=== PATIENT | female | born 1960 | race Hispanic/Latino ===

== ENCOUNTER → 2019-02-03 | Outpatient (CLI) | payer MEDICARE ==
[~2019-02-03] MED LIST: DICL50TA7 PO; DOCU-116 PO; LEVO150 PO; LEVO150T11 PO; TYL3 PO
== END | disposition home or self-care (01) ==
LOC: RAH 09:49
PROVIDERS: ATTEND Family Medicine
DX: Z12.31 Encounter for screening mammogram for malignant neoplasm of breast (principal); N63.10 Unspecified lump in the right breast, unspecified quadrant
CPT/HCPCS: 77067

== ENCOUNTER → 2021-04-24 | Outpatient (CLI) | payer MEDICARE, OTHER | END | disposition home or self-care (01) | LOC: RAH 04-14 13:32 | PROVIDERS: ATTEND Family Medicine | DX: Z12.31 Encounter for screening mammogram for malignant neoplasm of breast (principal); N60.02 Solitary cyst of left breast; N63.20 Unspecified lump in the left breast, unspecified quadrant | CPT/HCPCS: 77066 ==

== ENCOUNTER → 2023-04-20 | Outpatient (CLI) | payer OTHER | END | disposition home or self-care (01) | LOC: RAH 14:10 | PROVIDERS: ATTEND Family Medicine | DX: Z12.31 Encounter for screening mammogram for malignant neoplasm of breast (principal) | CPT/HCPCS: 77067 ==

== ENCOUNTER 2023-08-01 11:43 | Inpatient (IN) | payer OTHER ==
[~2023-08-01] VITALS: Ht 162.6 cm; Wt 109.8 kg
[2023-08-01] MEDS: ASPIRIN 325MG TAB PO ONE (12:18)
[2023-08-01] MEDS: FAMOTIDINE 20MG VIAL IV ONE (12:18)
[2023-08-01] MEDS: NITROGLYCERIN 0.4 MG SL TAB SL PRN (12:19)
[2023-08-01 12:36] LABS: EOSINOPHILS # (AUTO) 0.08 K/uL (0.00-0.70); EOSINOPHILS % (AUTO) 1.4 % (0.0-8.0); HEMATOCRIT 36.7 % (36-48); IMMATURE GRANULOCYTE ABSOLUTE 0.02 K/uL (0-1); LYMPHOCYTES # (AUTO) 1.4 K/uL (1.0-4.8); LYMPHOCYTES % (AUTO) 22.8 % (21.0-51.0); MEAN CORPUSCULAR HEMOGLOBIN 30.5 pg (27.0-33.0); MEAN CORPUSCULAR VOLUME 92.4 fL (79-99); MONOCYTES # (AUTO) 0.3 K/uL (0.1-1.0); MONOCYTES % (AUTO) 4.7 % (3.0-13.0); NEUTROPHILS # (AUTO) 4.2 K/uL (1.8-7.7); NEUTROPHILS % (AUTO) 70.8 % (40.0-77.0); PLATELET COUNT (AUTO) 191 K/uL (130-400); RED BLOOD CELL COUNT(AUTO) 3.97 MIL/uL (4.00-5.50); RED CELL DISTRIBUTION WIDTH 13.1 % (11.0-15.5); WHITE BLOOD COUNT (AUTO) 5.9 K/uL (4.8-10.8)
[2023-08-01 12:39] LABS: CREATININE 1.2 mg/dL (0.5-1.5); POTASSIUM 4.2 mmol/L (3.5-5.1)
[2023-08-01 12:41] LABS: INR 0.95 (0.85-1.15); PROTHROMBIN TIME 11.2 SEC (9.6-11.6)
[2023-08-01 12:44] LABS: ALBUMIN 3.7 g/dL (3.5-5.0); BILIRUBIN,TOTAL 0.7 mg/dL (0.2-1.0)
[2023-08-01 13:05] LABS: B-TYPE NATRIURETIC PEPTIDE 327 pg/mL (0-100)
[2023-08-01] MEDS: ENOXAPARIN SODIUM 120 MG/0.8ML SQ ONE (13:57)
[2023-08-01] MEDS: CLOPIDOGREL 300MG TAB PO ONE (13:57)
[2023-08-01] MEDS: NITROGLYCERIN 0.4 MG SL TAB SL STA (13:58)
[2023-08-01 14:18] LABS: HEMOGLOBIN A1C 5.6 % (4.0-6.0)
[2023-08-01 14:26] LABS: THYROID STIMULATING HORMONE 9.26 uIU/mL (0.36-3.74)
[2023-08-01] MEDS ORDERED: IPRATROPIUM/ALBUTEROL SULFATE 3 ML SOLUTION IH PRN (14:30)
[2023-08-01] MEDS: PANTOPRAZOLE 40 MG TAB DR PO SCH (15:01)
[2023-08-01 15:20] VITALS: BP 137/48; PULSE 52; RESP 14
[2023-08-01 15:30] VITALS: O2SAT 98
[2023-08-01] MEDS ORDERED: SODIUM BICARBONATE 650 MG TAB PO PRN (15:30)
[2023-08-01 15:42] LABS: MAGNESIUM 2.1 mg/dL (1.80-2.40)
[2023-08-01] MEDS ORDERED: NITROGLYCERIN 0.4 MG SL TAB SL PRN (16:00)
[2023-08-01] MEDS ORDERED: FOLI0.8T22 PO (16:19)
[2023-08-01] MEDS ORDERED: LISI20TA24 PO (16:19)
[2023-08-01] MEDS ORDERED: SODI650T PO (16:19)
[2023-08-01] MEDS ORDERED: LEVO137C4 PO (16:19)
[2023-08-01] MEDS ORDERED: FERR325T22 PO (16:19)
[2023-08-01] MEDS ORDERED: ATOR20TA65 PO (16:19)
[2023-08-01 19:02] VITALS: PULSE 50; RESP 18; O2SAT 95
[2023-08-01 19:46] VITALS: BP 122/57; PULSE 40; RESP 20
[2023-08-01 20:00] VITALS: O2SAT 98
[2023-08-01 20:47] LABS: CREATINE KINASE, TOTAL 552 U/L (21-232)
[2023-08-01] MEDS: ATORVASTATIN 40 MG TABLET PO SCH (20:52)
[2023-08-02] VITALS (18 sets, daily range): BP systolic 103–157; BP diastolic 52–71; PULSE 37–78; RESP 18–20; O2SAT 97–100
[2023-08-02] MEDS: HEPARIN 5,000 UNIT VIAL IV PRN (02:01)
[2023-08-02] MEDS: HEPARIN 25,000 UNITS/250ML D5W 250 ML IV SCH (02:11)
[2023-08-02 05:32] LABS: BASOPHILS # (AUTO) 0.01 K/uL (0.00-0.20); BASOPHILS % (AUTO) 0.2 % (0.0-5.0); EOSINOPHILS # (AUTO) 0.09 K/uL (0.00-0.70); EOSINOPHILS % (AUTO) 1.7 % (0.0-8.0); HEMATOCRIT 32.8 % (36-48); IMMATURE GRANULOCYTE ABSOLUTE 0.02 K/uL (0-1); LYMPHOCYTES % (AUTO) 38.5 % (21.0-51.0); MEAN CORPUSCULAR HEMOGLOBIN 30.6 pg (27.0-33.0); MEAN CORPUSCULAR HGB CONC 32.9 g/dL (32.0-36.0); MEAN CORPUSCULAR VOLUME 92.9 fL (79-99); MONOCYTES # (AUTO) 0.3 K/uL (0.1-1.0); MONOCYTES % (AUTO) 4.9 % (3.0-13.0); NEUTROPHILS # (AUTO) 2.9 K/uL (1.8-7.7); NEUTROPHILS % (AUTO) 54.3 % (40.0-77.0); PLATELET COUNT (AUTO) 174 K/uL (130-400); RED BLOOD CELL COUNT(AUTO) 3.53 MIL/uL (4.00-5.50); RED CELL DISTRIBUTION WIDTH 13.2 % (11.0-15.5); WHITE BLOOD COUNT (AUTO) 5.3 K/uL (4.8-10.8)
[2023-08-02 06:05] LABS: BILIRUBIN,TOTAL 0.7 mg/dL (0.2-1.0); POTASSIUM 3.8 mmol/L (3.5-5.1); TOTAL PROTEIN, SERUM 6.7 g/dL (6.0-8.3)
[2023-08-02] MEDS: ASPIRIN 81 MG EC TAB PO SCH (08:16)
[2023-08-02] MEDS: LISINOPRIL 20 MG TABLET PO SCH (08:16)
[2023-08-02] MEDS: Vitamin B Complex/Vit C/Folic Acid PO SCH (08:16)
[2023-08-02] MEDS: CLOPIDOGREL 75MG TAB PO SCH (08:17)
[2023-08-02] MEDS ORDERED: HEPARIN 10,000 UNIT/10ML (1,000 UNIT/ML) VIAL ONE (18:50)
[2023-08-02] MEDS ORDERED: NITROGLYCERIN 50MG VIAL ONE (18:50)
[2023-08-02] MEDS ORDERED: LIDOCAINE HCL 400MG/20ML VIAL ONE (18:50)
[2023-08-02] MEDS ORDERED: SODIUM BICARB 50MEQ 50ML VIAL 50 ML ONE (18:50)
[2023-08-02] MEDS ORDERED: IOHEXOL 350 MG/ML 100ML INFUS..BTL IV ONE (18:50)
[2023-08-02] MEDS ORDERED: IOHEXOL-350 50ML VIAL IV ONE (18:50)
[2023-08-02] MEDS ORDERED: ATROPINE 1MG SYG IVP ONE (18:52)
[2023-08-02] MEDS ORDERED: NICARDIPINE 25MG INJ IV ONE (18:59)
[2023-08-02] MEDS ORDERED: FENTANYL CITRATE PF 50 MCG/1 ML 2ML VIAL ONE (19:00)
[2023-08-02] MEDS ORDERED: MIDAZOLAM HCL 1 MG/ML 2ML VIAL ONE (19:00)
[2023-08-02] MEDS ORDERED: BIVALIRUDIN 250 MG/VIAL IV ONE (19:03)
[2023-08-02] MEDS: 0.9%NACL 1000ML 1,000 ML IV SCH (20:41)
[2023-08-03] VITALS (7 sets, daily range): BP systolic 100–158; BP diastolic 47–78; PULSE 41–52; RESP 18–20; O2SAT 98–100
[2023-08-03 03:42] LABS: BASOPHILS # (AUTO) 0.01 K/uL (0.00-0.20); BASOPHILS % (AUTO) 0.2 % (0.0-5.0); EOSINOPHILS # (AUTO) 0.11 K/uL (0.00-0.70); EOSINOPHILS % (AUTO) 2.1 % (0.0-8.0); HEMATOCRIT 31.8 % (36-48); IMMATURE GRANULOCYTE ABSOLUTE 0.02 K/uL (0-1); LYMPHOCYTES # (AUTO) 1.3 K/uL (1.0-4.8); LYMPHOCYTES % (AUTO) 25.6 % (21.0-51.0); MEAN CORPUSCULAR HEMOGLOBIN 30.1 pg (27.0-33.0); MEAN CORPUSCULAR HGB CONC 32.7 g/dL (32.0-36.0); MEAN CORPUSCULAR VOLUME 92.2 fL (79-99); MONOCYTES # (AUTO) 0.3 K/uL (0.1-1.0); MONOCYTES % (AUTO) 6.3 % (3.0-13.0); NEUTROPHILS # (AUTO) 3.4 K/uL (1.8-7.7); NEUTROPHILS % (AUTO) 65.4 % (40.0-77.0); PLATELET COUNT (AUTO) 170 K/uL (130-400); RED BLOOD CELL COUNT(AUTO) 3.45 MIL/uL (4.00-5.50); RED CELL DISTRIBUTION WIDTH 13.1 % (11.0-15.5); WHITE BLOOD COUNT (AUTO) 5.2 K/uL (4.8-10.8)
[2023-08-03 03:49] LABS: ALBUMIN 2.7 g/dL (3.5-5.0); BILIRUBIN,TOTAL 0.4 mg/dL (0.2-1.0); CREATININE 1.1 mg/dL (0.5-1.0); POTASSIUM 3.8 mmol/L (3.5-5.1); TOTAL PROTEIN, SERUM 6.3 g/dL (6.0-8.3)
[2023-08-03] MEDS ORDERED: ATOR40TA69 PO (11:59)
[2023-08-03] MEDS ORDERED: Folic Acid/Vitamin B Comp W-C PO (11:59)
[2023-08-03] MEDS ORDERED: Nitroglycerin 0.4MG Sl Tab SL (11:59)
[2023-08-03] MEDS ORDERED: PANT40TA PO (11:59)
== END 2023-08-03 12:47 | disposition home or self-care (01) | DRG 281 ==
LOC: EDH 11:43 → EDHIP 13:57 → 2DH 15:11
PROVIDERS: ADMIT Internal Medicine; ATTEND Internal Medicine
PROC: 4A023N7 Measurement of Cardiac Sampling and Pressure, Left Heart, Percutaneous Approach (ICD-10-PCS; principal; 2023-08-02)
PROC: B2111ZZ Fluoroscopy of Multiple Coronary Arteries using Low Osmolar Contrast (ICD-10-PCS; 2023-08-02)
PROC: B2151ZZ Fluoroscopy of Left Heart using Low Osmolar Contrast (ICD-10-PCS; 2023-08-02)
DX: I21.4 Non-ST elevation (NSTEMI) myocardial infarction (principal); N18.4 Chronic kidney disease, stage 4 (severe); Z68.41 Body mass index [BMI] 40.0-44.9, adult; E66.01 Morbid (severe) obesity due to excess calories; E03.9 Hypothyroidism, unspecified; E78.00 Pure hypercholesterolemia, unspecified; E86.0 Dehydration; I12.9 Hypertensive chronic kidney disease with stage 1 through stage 4 chronic kidney disease, or unspecified chronic kidney disease; Z96.651 Presence of right artificial knee joint; G47.33 Obstructive sleep apnea (adult) (pediatric); Z79.02 Long term (current) use of antithrombotics/antiplatelets; Z79.82 Long term (current) use of aspirin; Z79.899 Other long term (current) drug therapy; Z88.5 Allergy status to narcotic agent; Z90.49 Acquired absence of other specified parts of digestive tract
CPT/HCPCS: 36415; 71045; 80053; 80061; 82550; 83036; 83735; 83880; 84439; 84443; 84481; 84484; 85025; 85610; 85730; 93005; 93306; 93458; 94664; 96365; 96372; 96375; 99156; 99157; G0378; J0461; J0583; J1644; J1650; J2250; J3010; J3490; Q9967; A4649; C1769; C1894; Q9965